=== PATIENT | male | born 1995 | race Caucasian/White ===

== ENCOUNTER 2017-03-11 20:29 | Emergency (ER) | payer SELFPAY ==
--- NOTE | 2017-03-11 20:53 | EDM.PDOC ---
ED HPI GENERAL MEDICAL PROBLEM - General Stated Complaint: BLOOD IN STOOL Time Seen by Provider: 03/11/17 20:42 - History of Present Illness INITIAL COMMENTS - FREE TEXT/NARRATIVE: HISTORY AND PHYSICAL: History of present illness: The patient is a 21-year-old male with no stated medical history but who admits he does not go to the doctor very much and presents with seeing blood in the stool today. He says this happened in the past but he thought that today there was more blood than usual. In the past he has never gone for evaluation or workup. Patient says it has happened less than 5 times and when it has happened in the past it is not associated with rectal or anal pain but is associated with some cramping in the lower abdomen. The patient says that he always has some cramping on and off and it is not always associated with a change in bowel movement. Patient says he eats mostly meat and potatoes and is not very good at eating vegetables and fiber. He does hydrate. Patient says that this evening when he had the bowel movement it was formed and some loose components along with the blood. He has not had any recent diarrhea vomiting fever chills but has had cold symptoms which she is not concerned about which consist of a runny nose and some congestion. Patient does not take a lot of aspirin based products or nonsteroidals. Patient has no upper abdominal pain and no surgical history. Review of systems: As per history of present illness and below otherwise all systems reviewed and negative. Past medical history: As per history of present illness and as reviewed below otherwise noncontributory. Surgical history: As per history of present illness and as reviewed below otherwise noncontributory. Social history: No reported history of drug or alcohol abuse. Family history: As per history of present illness and as reviewed below otherwise noncontributory. Physical exam: Gen.: Well-developed well-nourished man who is mildly overweight and nontoxic. Vital signs are noted by me. HEENT: Atraumatic, normocephalic, pupils reactive, negative for conjunctival pallor or scleral icterus, mucous membranes moist, throat clear, neck supple, nontender, trachea midline. Lungs: Clear to auscultation, breath sounds equal bilaterally, chest nontender. Heart: S1S2, regular rate and rhythm no overt murmurs. Abdomen: Soft, nondistended, nontender. Bowel sounds are normoactive and there is some slight tympany in the left side of the abdomen on percussion without rebound guarding or tenderness. Negative for masses or hepatosplenomegaly. Negative for costovertebral tenderness. Pelvis: Stable nontender. Genitourinary: Deferred. Rectal: Normal tone push and squeeze, there are no external masses and on digital exam there are no internal masses and there is a scant amount of light brown stool in the vault which is Hemoccult negative Extremities: Atraumatic, negative for cords or calf pain. Neurovascular unremarkable. Neuro: Awake, alert, oriented. Cranial nerves II through XII unremarkable. Cerebellum unremarkable. Motor and sensory unremarkable throughout. Exam nonfocal. Diagnostics: CBC CMP INR Therapeutics: [] I discussed with the patient that if basic labs are normal today that he is going to have to start journaling his symptoms with respect to his bowel movements as well as his dietary intake and follow-up for an outpatient colonoscopy. He states understanding. Impression: Rectal bleeding stable Definitive disposition and diagnosis as appropriate pending reevaluation and review of above. - Related Data Allergies Allergy/AdvReac Type Severity Reaction Status Date / Time No Known Allergies Allergy Verified 03/11/17 21:04 Home Meds: Home Meds . [No Known Home Meds] 03/11/17 [History] ED ROS GENERAL - Review of Systems Review Of Systems: ROS reveals no pertinent complaints other than HPI. ED EXAM, GENERAL - Physical Exam Exam: See Below (See dictation) Course - Vital Signs Last Recorded V/S: Last Vital Signs Temp 37.3 C 03/11/17 20:50 Pulse 93 03/11/17 20:50 Resp 17 03/11/17 20:50 BP 141/80 H 03/11/17 20:50 Pulse Ox 97 03/11/17 20:50 - Orders/Labs/Meds Labs: Laboratory Tests 03/11/17 03/11/17 03/11/17 Range/Units 21:12 21:12 21:12 WBC 9.80 (4.0-11.0) K/uL RBC 4.86 (4.50-5.90) M/uL Hgb 14.1 (13.0-17.0) g/dL Hct 40.3 (38.0-50.0) % MCV 82.9 (80.0-98.0) fL MCH 29.0 (27.0-32.0) pg MCHC 35.0 (31.0-37.0) g/dL RDW Std Deviation 39.6 (28.0-62.0) fl RDW Coeff of Teri 13 (11.0-15.0) % Plt Count 252 (150-400) K/uL MPV 9.40 (7.40-12.00) fL Neut % (Auto) 57.3 (48.0-80.0) % Lymph % (Auto) 24.9 (16.0-40.0) % [place] % (Auto) 10.6 (0.0-15.0) % Eos % (Auto) 6.8 (0.0-7.0) % Baso % (Auto) 0.4 (0.0-1.5) % Neut # (Auto) 5.6 (1.4-5.7) K/uL Lymph # (Auto) 2.4 (0.6-2.4) K/uL [place] # (Auto) 1.0 H (0.0-0.8) K/uL Eos # (Auto) 0.7 (0.0-0.7) K/uL Baso # (Auto) 0.0 (0.0-0.1) K/uL Nucleated RBC % 0.0 /100WBC Nucleated RBCs # 0 K/uL INR 0.99 (0.86-1.11) Sodium 141 (136-146) mmol/L Potassium 3.9 (3.5-5.1) mmol/L Chloride 107 (98-110) mmol/L Carbon Dioxide 23 (21-31) mmol/L BUN 12 (6.0-23.0) mg/dL Creatinine 1.1 (0.6-1.5) mg/dL Est Cr Clr Drug Dosing 120.05 mL/min Estimated GFR (MDRD) > 60.0 ml/min Glucose 90 (60-110) mg/dL Calcium 9.1 (8.8-10.8) mg/dL Total Bilirubin 0.6 (0.1-1.5) mg/dL AST 18 (5-40) IU/L ALT 20 (8-54) IU/L Alkaline Phosphatase 67 (40-150) Total Protein 7.1 (6.0-8.0) g/dL Albumin 4.1 (3.5-5.0) g/dL Globulin 3.0 (2.0-3.5) g/dL Albumin/Globulin Ratio 1.4 (1.3-2.8) Departure - Departure Time of Disposition: 21:57 Disposition: Home, Self-Care 01 Condition: Good Clinical Impression: Rectal bleeding - Discharge Information Referrals: PCP,None [Primary Care Provider] - Additional Instructions: The following information is given to patients seen in the emergency department who are being discharged to home. This information is to outline your options for follow-up care. We provide all patients seen in our emergency department with a follow-up referral. The need for follow-up, as well as the timing and circumstances, are variable depending upon the specifics of your emergency department visit. If you don't have a primary care physician on staff, we will provide you with a referral. We always advise you to contact your personal physician following an emergency department visit to inform them of the circumstance of the visit and for follow-up with them and/or the need for any referrals to a consulting specialist. The emergency department will also refer you to a specialist when appropriate. This referral assures that you have the opportunity for followup care with a specialist. All of these measure are taken in an effort to provide you with optimal care, which includes your followup. Under all circumstances we always encourage you to contact your private physician who remains a resource for coordinating your care. When calling for followup care, please make the office aware that this follow-up is from your recent emergency room visit. If for any reason you are refused follow-up, please contact the [facility] emergency department at and ask to speak to the emergency department charge nurse. [facility] Primary care- Internal Medicine and [facility] [address] [place] [id number] [facility]-General Surgery Professional Building [address] [place] [phone] Try to push more hydration any more fiber and vegetables as we discussed. If you 're unable to eat fiber please add a fiber supplement to your diet. Please start journaling your fluid intake as well as your bowel movements to help the provider in the clinic to clarify the next steps in your care plan. Please call our clinics as above and schedule follow-up. Return to ER as needed and as discussed
[2017-03-11 21:50] LABS: CHLORIDE,CL 107 mmol/L (98-110); SODIUM,NA 141 mmol/L (136-146)
== END 2017-03-11 22:18 | disposition home or self-care (01) ==
LOC: MW.ED 20:29
DX: K62.5 Hemorrhage of anus and rectum (principal)
CPT/HCPCS: 36415; 80053; 85025; 85610; 99283